=== PATIENT | female | born 1985 | race Two or more races ===

== ENCOUNTER 2016-08-30 02:39 | Emergency (ER) | payer SELFPAY ==
[~2016-08-30] VITALS: Ht 167.6 cm; Wt 111.1 kg
[2016-08-30] MEDS ORDERED: ALBUTEROL2.5 MG/3 M INH (02:59)
--- NOTE | 2016-08-30 03:08 | Emergency Room Report ---
History of Present Illness General Chief Complaint: Asthma Source: Patient Present Illness HPI This is a 30-year-old female with history of asthma. She present with asthma exacerbation. Onset for last couple days. Her albuterol and not helping. Denies any fever chills denies any nausea vomiting. She does have a viral illness. No intubation. No admission before. Infrequent attacks. Allergies: Coded Allergies: No Known Allergies (Unverified , 08/30/16) Patient History Past Medical History: see triage record, old chart reviewed, asthma Past Surgical History: none Pertinent Family History: none Social History: Denies: smoking Last Menstrual Period: August Now: No Immunizations: other Reviewed Nursing Documentation: PMH: Agreed, PSxH: Agreed Nursing Documentation-PMH Hx Asthma: Yes Review of Systems Eye: Denies: blurred vision, eye pain ENT: Denies: ear pain, nose congestion, throat swelling Respiratory: Reports: cough, shortness of breath, wheezing Cardiovascular: Denies: chest pain, palpitations Gastrointestinal: Denies: abdominal pain, diarrhea, nausea, vomiting Musculoskeletal: Denies: back pain, joint pain Skin: Denies: rash Neurological: Denies: headache, numbness Endocrine: Denies: increased thirst, increased urine Hematologic/Lymphatic: Denies: easy bruising All Other Systems: negative except mentioned in HPI Physical Exam Vital Signs Date Time Temp Pulse Resp B/P Pulse Ox O2 Delivery O2 Flow Rate FiO2 08/30/16 02:50 97.7 82 18 125/85 97 Room Air vitals normal Sp02 EP Interpretation: reviewed, normal General Appearance: well appearing, no apparent distress, alert, obese Head: normocephalic, atraumatic Eyes: bilateral eye EOMI, bilateral eye PERRL ENT: hearing grossly normal, normal pharynx Neck: full range of motion, supple, no meningismus Respiratory: chest non-tender, lungs clear, normal breath sounds, decreased breath sounds Cardiovascular #1: regular rate, rhythm, no murmur Gastrointestinal: normal bowel sounds, non tender, no mass, no organomegaly, no bruit, non-distended Musculoskeletal: back normal, gait/station normal, normal range of motion Psychiatric: mood/affect normal Skin: warm/dry Medical Decision Making Diagnostic Impression: Primary Impression: Asthma attack Additional Impression: Viral upper respiratory illness ER Course Patient presents with a viral illness exacerbating her asthma. She felt better now. We'll discharge home with refill on her medication and also steroid. No evidence of bacterial infection. No evidence of PE, pneumonia, dissection or ACS to name a few. Last Vital Signs Date Time Temp Pulse Resp B/P Pulse Ox O2 Delivery O2 Flow Rate FiO2 08/30/16 02:50 97.7 82 18 125/85 97 Room Air Status: improved Disposition: HOME, SELF-CARE Condition: Stable Scripts Prednisone* (PREDNISONE*) 20 Mg Tablet 60 MG ORAL DAILY, #12 TAB Prov: DENIS OAKES M.D. 08/30/16 Albuterol Sulfate* (ALBUTEROL SULFATE HHN*) 2.5 Mg/3 Ml Vial.neb 2.5 MG HHN Q4H Y for Shortness of Breath, #25 VIAL Prov: DENIS OAKES M.D. 08/30/16 Albuterol Sulfate* (ALBUTEROL SULFATE MDI*) 8.5 Gm Hfa.aer.ad 2 PUFF INH Q4H Y for cough/wheezing, #1 EA 0 Refills Prov: DENIS OAKES M.D. 08/30/16 Patient Instructions: Asthma, Adult Additional Instructions: Followup with your Dr. in 2-5 days. Return if symptom worsen. DENIS OAKES M.D. Aug 30, 2016 03:08
[2016-08-30 03:11] VITALS: BP 126/87
[2016-08-30] MEDS ORDERED: Albuterol ud Inhalation HHN ONE (03:15)
[2016-08-30] MEDS ORDERED: Ipratropium 0.02% Inh Soln 2.5ml UD HHN ONE (03:15)
[2016-08-30] MEDS ORDERED: PredniSONE 20mg tab ORAL ONE (03:15)
[2016-08-30 03:44] VITALS: BP 120/68
[2016-08-30] MEDS ORDERED: ALBUTEROL2.5 MG/3 M HHN (04:04)
[2016-08-30] MEDS ORDERED: ALBUTEROL SULF8.5 GM INH (04:04)
[2016-08-30] MEDS ORDERED: PREDNISONE20 MG ORAL (04:04)
[2016-08-30 04:13] VITALS: BP 120/68
== END 2016-08-30 04:14 | disposition home or self-care (01) ==
LOC: EMR 03:05
DX: J45.901 Unspecified asthma with (acute) exacerbation (principal); B34.9 Viral infection, unspecified
CPT/HCPCS: 94640; 94664; 99284